=== PATIENT | male | born 2000 | race Caucasian/White ===

== ENCOUNTER 2021-11-12 14:22 | Emergency (ER) | payer OTHER, SELFPAY ==
[2021-11-13 15:08] LABS: SARS-CoV-2 PCR by NAA Not Detected (NotDetected)
== END 2021-11-12 15:28 | disposition home or self-care (01) ==
LOC: NAV ERS 14:22
DX: Z20.822 Contact with and (suspected) exposure to COVID-19 (principal); F17.210 Nicotine dependence, cigarettes, uncomplicated
CPT/HCPCS: 99283; U0003; U0005